=== PATIENT | male | born 1990 | race Caucasian/White ===

== ENCOUNTER 2016-11-18 17:59 | Emergency (ER) | payer MEDICAID ==
[~2016-11-18] VITALS: Ht 188 cm; Wt 93.6 kg
[2016-11-18 18:35] VITALS: Ht 188 cm; Wt 93.6 kg
[2016-11-18] MEDS ORDERED: PERM1LIQ MC (18:43)
--- NOTE | 2016-11-18 19:12 | ERD ---
ER Documentation Chief Complaint Date/Time DATE: 11/18/16 TIME: 19:10 Chief Complaint LICE CLEARANCE HPI Patient is a 26-year-old male who presents to the ED for "lice clearance." Patient was sent here from [facility] to rule out lice. Another member was diagnosed with lice today. No complaints today. Denies any symptoms. ROS All systems reviewed and are negative except as per history of present illness. Medications Home Meds Active Scripts Permethrin (Permethrin) 1 Gm Liquid, 1 GM [facility] BID for 7 Days Prov:JEFF FRANCIS PA-C 11/18/16 Allergies Allergies: Coded Allergies: No Known Drug Allergies (Verified Allergy, Unknown, 10/04/16) PMhx/Soc History of Surgery: No Anesthesia Reaction: No Hx Neurological Disorder: No Hx Respiratory Disorders: No Hx Cardiac Disorders: No Hx Psychiatric Problems: No Hx Miscellaneous Medical Probl: No Hx Alcohol Use: Yes Hx Substance Use: Yes (meth) Hx Tobacco Use: Yes FmHx Family History: No coronary disease, No diabetes, No other Physical Exam Vitals Vital Signs Date Time Temp Pulse Resp B/P Pulse Ox O2 Delivery O2 Flow Rate FiO2 11/18/16 18:35 98.0 83 17 140/70 98 Physical Exam GENERAL: Well-developed, well-nourished male. Appears in no acute distress. HEAD: Normocephalic, atraumatic. EYES: Pupils are equally reactive bilaterally. EOMs grossly intact. No conjunctival erythema. LUNG: Clear to auscultation bilaterally. No rhonchi, wheezing, rales or coarse breath sounds. HEART: Regular rate and rhythm. No murmurs, rubs or gallops.. SKIN: Normal color. Warm and dry. No rashes or lesions. Capillary refill < 2 seconds Procedures/MDM ER COURSE: I kept the patient and/or family informed of laboratory and diagnostic imaging results throughout the emergency room course MEDICAL DECISION MAKING: This is a 40-year-old male who presents with lice clearance. Vital signs were reviewed. Patient is afebrile. Patient is not hypoxic. Patient is nontoxic or ill-appearing. Patient does not have lice today. Low suspicion for necrotizing fasciitis, SJS, toxic epidermal necrolysis, Kawasaki, erythema multiforme, gangrene, scarlet fever, meningococcemia, sepsis, anaphylaxis. DISCHARGE: At this time, patient is stable for discharge and outpatient management with no new complaints during the ER course. Patient was sent home with permethrin. Patient will be discharged home with instructions to recheck for new or worsening symptoms such as fever, nausea, weakness, LOC and to follow up with primary care in the next 1-2 days. Patient was advised to return to the ER for any new or worsening symptoms. Plan was discussed and patient and/or family understands and agrees. Home instructions were given. Departure Diagnosis: Primary Impression: Screening for head lice Condition: Stable Patient Instructions: Head Lice Additional Instructions: Call your primary care doctor TOMORROW for an appointment during the next 1-2 days.See the doctor sooner or return here if your condition worsens before your appointment time. JEFF FRANCIS PA-C Nov 18, 2016 19:12
== END 2016-11-18 18:44 | disposition home or self-care (01) ==
LOC: E/R 17:59
DX: Z20.7 Contact with and (suspected) exposure to pediculosis, acariasis and other infestations (principal); Z72.0 Tobacco use
CPT/HCPCS: 99283

== ENCOUNTER 2018-09-29 16:15 | Emergency (ER) | END 2018-09-29 16:46 | disposition left against medical advice (07) ==